=== PATIENT | female | born 2000 | race Two or more races ===

== ENCOUNTER 2025-05-11 13:00 | Inpatient (IN) | payer OTHER ==
[~2025-05-11] VITALS: Ht 154.9 cm; Wt 61.7 kg
[2025-05-12 01:18] VITALS: BP 131/70
[2025-05-12] MEDS ORDERED: RINGERS SOLUTION,LACTATED 1,000 ML IV SCH (02:00)
[2025-05-12 03:05] LABS: BASO % 0.3 % (0.1-1.2); EOS # 0.09 (0.04-0.54); EOS % 0.9 % (0.7-7.0); LYMPH # 2.79 (1.18-3.74); LYMPH % 26.8 % (19.3-53.1); MEAN PLATELET VOLUME 13.00 fl (9.4-12.4); MONO # 0.97 (0.24-0.82); MONO % 9.3 % (4.7-12.5); NEUT # 6.42 (1.56-6.13); NEUT % 61.6 % (34.0-71.1); RED CELL DISTRIBUTION WIDTH 12.4 % (11.6-14.4); URINE APPEARANCE Clear; URINE BILIRRUBIN Negative (NEGATIVE); URINE BLOOD Trace; URINE COLOR Yellow; URINE GLUCOSE Negative (NEGATIVE); URINE KETONE Negative (NEGATIVE); URINE LEUKOCYTE Moderate; URINE NITRATE Negative; URINE PROTEIN Negative (NEGATIVE); URINE UROBILINOGEN 0.2 E.U./dl
[2025-05-12 03:08] LABS: URINE BACTERIA 1929.5 uL (0.0-1933); URINE EPITHELIAL CELLS 31.2 uL (0.0-38.8); URINE WBC 202.9 uL (0.0-23.2)
[2025-05-12 03:10] LABS: URINE CAST 0.43 uL (0.0-1.40); URINE RBC 1.1 uL (0.0-20.8)
[2025-05-12] MEDS ORDERED: PRENATAL TABLE1 EAC4 PO (03:11)
[2025-05-12] MEDS ORDERED: MORPHINE SULFATE 4 MG/ML CARTRIDGE IV ONE (03:15)
[2025-05-12 03:19] VITALS: BP 128/75
[2025-05-12 03:36] LABS: ALT/SGPT 27.0 U/L (12-78); AST/SGOT 30.0 U/L (15-37); BILIRUBIN TOTAL 0.43 mg/dL (0.3-1.2); BUN CREA RATIO 8.0 (7.0-25.0); CREATININE SERUM 0.59 mg/dL (0.55-1.02); GFR 127.46; GLOBULINA 3.5 G/DL (2.4-3.5); GLUCOSE FASTING 93.0 mg/dL (65-100); OSMOLALITY SERUM 276.0 MOSM/KG (275-295)
[2025-05-12 03:42] LABS: INR < 0.93
[2025-05-12] MEDS ORDERED: LIDOCAINE HCL 1% 10ML VIAL ONE (06:41)
[2025-05-12] MEDS ORDERED: OXYTOCIN 20 UNITS/1000ML RL PIGGYBAG IV ONE (06:41)
[2025-05-12] MEDS ORDERED: ERYTHROMYCIN BASE OPHT 1GM EACH TUBE OP ONE ×2 (06:41→07:15)
[2025-05-12] MEDS ORDERED: CHLORHEXIDINE GLUCONATE 120 ML BOTTLE TOP ONE ×2 (06:41→07:15)
[2025-05-12 07:00] VITALS: BP 120/77
[2025-05-12] MEDS ORDERED: OXYTOCIN 1,000 ML IV SCH (07:15)
[2025-05-12] MEDS ORDERED: ACETAMINOPHEN 500 MG GEL..CAP PO PRN (07:15)
[2025-05-12] MEDS ORDERED: HYDROCORTISONE 2.5% 30 GM TUBE RECTAL SCH (09:00)
[2025-05-12] MEDS ORDERED: BENZOCAINE/MENTHOL 90 ML BOTTLE TOP SCH (09:00)
[2025-05-12 09:06] VITALS: BP 117/67
[2025-05-12 15:39] VITALS: BP 117/74
[2025-05-12] MEDS ORDERED: CETIRIZINE HCL 5MG/5ML BLIST.PACK PO PRN (16:15)
[2025-05-13] VITALS: BP 125/82
[2025-05-13 01:28] LABS: BASO % 0.3 % (0.1-1.2); EOS # 0.16 (0.04-0.54); EOS % 1.3 % (0.7-7.0); LYMPH # 2.90 (1.18-3.74); LYMPH % 23.5 % (19.3-53.1); MEAN PLATELET VOLUME 12.70 fl (9.4-12.4); MONO # 1.28 (0.24-0.82); MONO % 10.4 % (4.7-12.5); NEUT # 7.90 (1.56-6.13); NEUT % 64.1 % (34.0-71.1); RED CELL DISTRIBUTION WIDTH 12.4 % (11.6-14.4)
[2025-05-13 08:00] VITALS: BP 108/70
[2025-05-13 16:00] VITALS: BP 111/75
[2025-05-14 00:44] VITALS: BP 110/77
[2025-05-14 08:55] VITALS: BP 126/80
== END 2025-05-14 13:26 | disposition home or self-care (01) | DRG 807 ==
LOC: OB/GYN 05-12 01:48 → LDR 05-12 01:48 → OB/GYN 05-12 07:36
PROVIDERS: ADMIT Specialist; ATTEND Specialist
PROC: 10E0XZZ Delivery of Products of Conception, External Approach (ICD-10-PCS; principal; 2025-05-12)
PROC: 0W8NXZZ Division of Female Perineum, External Approach (ICD-10-PCS; 2025-05-12)
PROC: 4A1HXCZ Monitoring of Products of Conception, Cardiac Rate, External Approach (ICD-10-PCS; 2025-05-12)
DX: O80 Encounter for full-term uncomplicated delivery (principal); Z37.0 Single live birth; Z3A.39 39 weeks gestation of pregnancy

== ENCOUNTER 2025-05-28 08:36 | Inpatient (IN) | payer OTHER ==
[~2025-05-28] VITALS: Ht 152.4 cm; Wt 60.8 kg
[2025-05-28 08:15] VITALS: BP 111/72
[~2025-05-28 08:36] MED LIST changes: -IBU800 MG PO
[2025-05-28] MEDS ORDERED: METHYLERGONOVINE MALEATE 0.2 MG/ML AMPUL IM STA (08:58)
[2025-05-28] MEDS ORDERED: OXYTOCIN 20 UNITS/1000ML RL PIGGYBAG IV SCH (09:00)
[2025-05-28 09:43] LABS: BASO % 0.3 % (0.1-1.2); EOS # 0.05 (0.04-0.54); EOS % 0.7 % (0.7-7.0); LYMPH # 1.38 (1.18-3.74); LYMPH % 18.4 % (19.3-53.1); MEAN PLATELET VOLUME 11.80 fl (9.4-12.4); MONO # 0.19 (0.24-0.82); MONO % 2.5 % (4.7-12.5); NEUT # 5.83 (1.56-6.13); NEUT % 77.6 % (34.0-71.1); RED CELL DISTRIBUTION WIDTH 13.2 % (11.6-14.4)
[2025-05-28 10:08] LABS: INR 1.0
[2025-05-28 10:22] LABS: ALT/SGPT 33.0 U/L (12-78); AST/SGOT 31.0 U/L (15-37); BILIRUBIN TOTAL 0.34 mg/dL (0.3-1.2); BUN CREA RATIO 12.0 (7.0-25.0); CREATININE SERUM 0.52 mg/dL (0.55-1.02); GFR 147.46; GLOBULINA 3.4 G/DL (2.4-3.5); GLUCOSE FASTING 96.0 mg/dL (65-100); OSMOLALITY SERUM 277.0 MOSM/KG (275-295)
[2025-05-28 12:39] VITALS: BP 111/72
[2025-05-28 15:40] VITALS: BP 134/67
[2025-05-28 15:53] VITALS: BP 96/58
[2025-05-28 20:19] VITALS: BP 113/73
[2025-05-28 23:24] VITALS: BP 108/71
[2025-05-29 03:11] VITALS: BP 103/69
[2025-05-29 06:25] VITALS: BP 99/59; O2SAT 97
[2025-05-29] MEDS ORDERED: CEFAZOLIN SODIUM 1,000 MG VIAL IV SCH (12:00)
[2025-05-29 12:08] VITALS: BP 124/85
[2025-05-29] MEDS ORDERED: POVIDONE-IODINE 118 ML BOTT TOP ONE (13:21)
[2025-05-29] MEDS ORDERED: METHYLERGONOVINE MALEATE 0.2 MG/ML AMPUL ONE (13:42)
[2025-05-29] MEDS ORDERED: OXYTOCIN 10 UNITS/ML VIAL ONE ×2 (13:44→22:02)
[2025-05-29] MEDS ORDERED: ACETAMINOPHEN 500 MG GEL..CAP PO PRN (14:00)
[2025-05-29] MEDS ORDERED: OXYTOCIN 20 UNITS/1000ML RL PIGGYBAG IV ONE (14:00)
[2025-05-29] MEDS ORDERED: OXYTOCIN 1,000 ML IV SCH (14:00)
[2025-05-29] MEDS ORDERED: OxyCODONE HCL 5 MG TABLET (ROXICODONE) PO PRN (14:15)
[2025-05-29 18:28] VITALS: BP 112/74
[2025-05-30 00:16] VITALS: BP 115/76
[2025-05-30 10:33] VITALS: BP 100/62
[2025-05-30] MEDS ORDERED: IBU800 MG PO (15:59)
== END 2025-05-30 16:08 | disposition home or self-care (01) | DRG 769 ==
LOC: OBS/DEL 08:36 → LDR 12:42 → O/R 05-29 13:47 → OB/GYN 05-29 16:32
PROVIDERS: ADMIT Specialist; ATTEND Specialist
PROC: BW4GZZZ Ultrasonography of Pelvic Region (ICD-10-PCS; 2025-05-28)
PROC: 10D17Z9 Manual Extraction of Products of Conception, Retained, Via Natural or Artificial Opening (ICD-10-PCS; principal; 2025-05-29 18:00)
DX: O72.0 Third-stage hemorrhage (principal)

== ENCOUNTER → 2025-05-28 | Emergency (ER) | payer OTHER ==
[~2025-05-28] MED LIST: IBU800 MG PO; PRENATAL TABLE1 EAC4 PO
== END | disposition left against medical advice (07) ==
LOC: ER 07:17
DX: Z53.21 Procedure and treatment not carried out due to patient leaving prior to being seen by health care provider (principal)